=== PATIENT | female | born 1940 | race Caucasian/White ===

== ENCOUNTER → 2022-09-23 | Outpatient (OUT) | payer MEDICARE, OTHER, SELFPAY ==
[2022-09-23 15:03] LABS: Basophils Percent Auto 0.6 % (0.2-2.0); Hematocrit 35.3 % (36.0-48.0); Hemoglobin 12.1 g/dL (12.0-16.0); Immature Granulocytes Abs Auto 0.01 10^3/uL (0.00-0.03); Immature Granulocytes Pct Auto 0.2 % (0.0-0.5); Lymphocytes Absolute Auto 0.9 10^3/uL (1.2-3.8); Lymphocytes Percent Auto 16.3 % (20.5-60.0); Mean Corpuscular HGB Conc 34.3 g/dL (29.9-35.2); Mean Corpuscular Hemoglobin 29.8 pg (26.7-34.0); Mean Corpuscular Volume 86.9 fL (81.0-99.0); Mean Platelet Volume 8.8 fL (9.5-13.5); Monocytes Absolute Auto 0.5 10^3/uL (0.3-0.8); Monocytes Percent Auto 8.3 % (1.7-12.0); Neutrophils Percent Auto 74.6 % (43.0-75.0); Platelet Count 249 10^3/uL (150-450); Red Blood Count 4.06 10^6/uL (4.20-5.40); Red Cell Distribution Width 13.5 % (11.0-15.0); White Blood Count 5.4 10^3/uL (4.0-11.0)
== END ==
PROVIDERS: PCP Internal Medicine
DX: H57.819 Brow ptosis, unspecified (principal); H02.839 Dermatochalasis of unspecified eye, unspecified eyelid
CPT/HCPCS: 36415; 85025

== ENCOUNTER 2023-01-03 20:48 | Emergency (ER) | payer MEDICARE, OTHER, SELFPAY ==
[2023-01-03 20:57] VITALS: BP 167/88; PULSE 87; RESP 16; TEMP 36.7; O2SAT 96; BMI 26.1
--- NOTE | 2023-01-03 22:17 | ED_ITS ---
HPI - Extremity Injury (Lower) General Chief Complaint: Extremity Injury, Lower Stated Complaint: HIP PAIN Time Seen by Provider: 01/03/23 21:15 Source: patient Mode of arrival: Wheelchair Limitations: no limitations History of Present Illness HPI Narrative: right hip pain since 08/2022. She believes she injured it while working in her yard. Was seeing a chiropractor without benefit. Was seen at urgent care in September and xrays were neg. Then seen by orthopedics and states the joint was injected but this did not provide any relief. She is now scheduled for an MRI of her hip next week. Now presents to the ER because she has more pain with weight bearing on the joint. She also has an implant right buttocks to help control urinary incontinence. Denies fever. Has mild nausea. Related Data Home Medications Medication Instructions Recorded Confirmed bupropion HCl 150 mg 24 hr tablet, mg PO 01/03/23 extended release ramipril 10 mg capsule mg 01/03/23 ropinirole 0.5 mg tablet mg 01/03/23 Allergies Allergy/AdvReac Type Severity Reaction Status Date / Time Penicillins Allergy Mild Verified 01/03/23 21:02 Sulfa (Sulfonamide Allergy Verified 01/03/23 21:02 Antibiotics) ciprofloxacin [From Cipro] AdvReac Mild Verified 01/03/23 21:02 Review of Systems ROS Status of ROS 10 or more systems reviewed and unremarkable except as noted in history and below PFSH PFS Social History Smoking status: Never smoker Exam Constitutional Vital Signs, click to edit/add: Last Vital Signs Temp 98.1 F 01/03/23 20:57 Pulse 87 01/03/23 20:57 Resp 16 01/03/23 20:57 BP 167/88 H 01/03/23 20:57 Pulse Ox 96 01/03/23 20:57 O2 Del Method Room Air 01/03/23 20:57 Common normals: no apparent distress (antalgic gait right hip), average body habitus, oriented x3, no limitations, healthy appearing and alert Eye Common normals: EOMs intact bilaterally and conjunctivae normal Chest Common normals: inspection of chest normal Respiratory Common normals: normal respiratory effort, no retractions, no use of accessory muscles and clear to auscultation bilaterally Cardio Common normals: regular rate, regular rhythm, S1 normal heart sound and S2 normal heart sound GI Common normals: Normal to inspection, nondistended, normoactive bowel sounds present, soft to palpation and non-tender Extremity Other: mild tenderness right hip. implant palpable right buttocks Neuro Common normals: oriented x3, CN's II-XII intact bilaterally, moves all extremities and no focal motor deficits Psych Appearance: grossly normal Course Vital Signs Vital signs: Vital Signs Temperature 98.1 F 01/03/23 20:57 Pulse Rate 87 01/03/23 20:57 Respiratory Rate 16 01/03/23 20:57 Blood Pressure 167/88 H 01/03/23 20:57 Pulse Oximetry 96 01/03/23 20:57 Oxygen Delivery Method Room Air 01/03/23 20:57 Temperature 98.1 F 01/03/23 20:57 Pulse Rate 87 01/03/23 20:57 Respiratory Rate 16 01/03/23 20:57 Blood Pressure 167/88 H 01/03/23 20:57 Pulse Oximetry 96 01/03/23 20:57 Oxygen Delivery Method Room Air 01/03/23 20:57 MDM - Extremity Injury (Lower) MDM Narrative Medical decision making narrative: patient presents with ongoing right hip pain. ongoing since august. Focal tenderness on palp of the right hip. labs with mild elevated of sed rate, normal CRP. she is afebrile. CT with findings of bursitis -trochanteric. Patient treated with prednisone and discharged home with a prescription for prednisone and advised to follow up with her orthopedic surgeon Imaging Data CT scan - pelvis: Attestation: I have reviewed the pertinent imaging results. Radiologist's impression: [email or web address]?file=#[email or web address] file :///[email or web address]?file=#[email or web address] Find: Highlight all Match case Current View [email or web address]?file=#[email or web address]&zoom=auto,- Page: of 2 Current View [email or web address]?file=#[email or web address]&zoom=auto, [facility] [place] [address] [place] [address] Patient Name: CHAN CUEVA MRN: [facility]:[id number] date: 1940 Sex: F Assigned Patient Location: ER Current Patient Location: ER Accession/Order Number: [id number] Exam Date: 01/03/2023 22:53 Report Date: 01/03/2023 23:46 At the request of: JOE BHATIA Procedure: CT hip RT wo con EXAM: CT hip RT wo con, [id number] HISTORY: pain TECHNIQUE: Helical CT images of the right hip were obtained without IV contrast. Multiplanar reformats were generated at the scanner. Dose reduction technique used: Automated exposure control and/or adjustment of the mA and/or kV according to patient size and/or use of iterative reconstruction technique. COMPARISON: None. FINDINGS: No acute fracture, dislocation, or suspicious osseous lesion. Mild osteoarthritis of the right hip. No evidence of osteonecrosis. No significant hip joint effusion. 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 Mild fluid inflammatory changes in the trochanteric bursa (series 4 image 45). 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 Partially visualized spinal cord stimulator generator. Mild colonic diverticulosis. Status post hysterectomy. Surgical staple line at the distal colon. The remainder of the visualized intra-abdominal contents are within expected limits given the patient's age. IMPRESSION: 1. No acute osseous abnormality. 2. Mild osteoarthritis of the right hip. 3. Findings suggestive of right trochanteric bursitis. 4. Soft tissue calcification at the greater trochanter could be from chronic gluteus tendinopathy. Electronically authenticated by: NARINDER SINGLETARY Date: 01/03/2023 23:46 Discharge Plan Discharge Chief Complaint: Extremity Injury, Lower Clinical Impression: Bursitis of right hip Patient Disposition: Home, Self-Care Prescriptions / Home Meds: No Action ropinirole 0.5 mg tablet ramipril 10 mg capsule bupropion HCl 150 mg tablet extended release 24 hr PO Instructions: Hip Bursitis (ED) Additional Instructions: follow up with your orthopedic surgeon next week Stand Alone Forms: Portal Instructions Referrals: [facility] [Other] - 1 week
--- NOTE | 2023-01-03 22:21 | CT_ITS ---
The [address] [address] Patient Name: CHAN CUEVA MRN: [id number] date: 1940 Sex: F Assigned Patient Location: ER Current Patient Location: ER Accession/Order Number: [id number] Exam Date: 01/03/2023 22:53 Report Date: 01/03/2023 23:46 At the request of: JOE BHATIA Procedure: CT hip RT wo con EXAM: CT hip RT wo con, [id number] HISTORY: pain TECHNIQUE: Helical CT images of the right hip were obtained without IV contrast. Multiplanar reformats were generated at the scanner. Dose reduction technique used: Automated exposure control and/or adjustment of the mA and/or kV according to patient size and/or use of iterative reconstruction technique. COMPARISON: None. FINDINGS: No acute fracture, dislocation, or suspicious osseous lesion. Mild osteoarthritis of the right hip. No evidence of osteonecrosis. No significant hip joint effusion. 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 Mild fluid inflammatory changes in the trochanteric bursa (series 4 image 45). 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 Partially visualized spinal cord stimulator generator. Mild colonic diverticulosis. Status post hysterectomy. Surgical staple line at the distal colon. The remainder of the visualized intra-abdominal contents are within expected limits given the patient's age. CT/CT hip RT wo con IMPRESSION: 1. No acute osseous abnormality. 2. Mild osteoarthritis of the right hip. 3. Findings suggestive of right trochanteric bursitis. 4. Soft tissue calcification at the greater trochanter could be from chronic gluteus tendinopathy. Electronically authenticated by: NARINDER SINGLETARY Date: 01/03/2023 23:46
[2023-01-03 22:58] LABS: Basophils Absolute Auto 0.1 10^3/uL (0.0-0.1); Basophils Percent Auto 0.6 % (0.2-2.0); Hematocrit 36.5 % (36.0-48.0); Hemoglobin 12.1 g/dL (12.0-16.0); Immature Granulocytes Abs Auto 0.03 10^3/uL (0.00-0.03); Immature Granulocytes Pct Auto 0.4 % (0.0-0.5); Lymphocytes Absolute Auto 0.6 10^3/uL (1.2-3.8); Lymphocytes Percent Auto 7.8 % (20.5-60.0); Mean Corpuscular HGB Conc 33.2 g/dL (29.9-35.2); Mean Corpuscular Volume 93.6 fL (81.0-99.0); Mean Platelet Volume 8.5 fL (9.5-13.5); Monocytes Absolute Auto 0.7 10^3/uL (0.3-0.8); Neutrophils Absolute Auto 6.7 10^3/uL (1.4-6.5); Neutrophils Percent Auto 83.2 % (43.0-75.0); Platelet Count 353 10^3/uL (150-450); Red Cell Distribution Width 14.3 % (11.0-15.0); White Blood Count 8.1 10^3/uL (4.0-11.0)
[2023-01-03 23:03] LABS: Erythrocyte Sedimentation Rate 78 mm/hr (<=30)
[2023-01-04] MEDS: PREDNISONE 20 MG TABLET 40 MG PO (00:16)
== END 2023-01-04 00:48 | disposition home or self-care (01) ==
PROVIDERS: Emergency Provider Internal Medicine; PCP Internal Medicine
DX: M70.71 Other bursitis of hip, right hip (principal); Z79.899 Other long term (current) drug therapy
CPT/HCPCS: 36415; 73700; 85025; 85652; 86140; 99284